=== PATIENT | female | born 1945 | race Caucasian/White ===

== ENCOUNTER 2025-04-30 10:09 | Observation (INO) | payer MEDICARE, SELFPAY ==
[2025-04-30 10:11] VITALS: BP 232/113; PULSE 93; RESP 22; TEMP 36.8; O2SAT 97
--- NOTE | 2025-04-30 10:21 | DI.RAD.S_ITS ---
PROCEDURE: XR CHEST 1V INDICATIONS: Possible stroke TECHNIQUE: One view of the chest was acquired. COMPARISON: None. FINDINGS: Surgical changes and devices: None. Lungs and pleura: Lungs are clear. No pleural effusions or pneumothorax. Mediastinum: Mediastinal contours appear normal. Heart size is normal. Bones and chest wall: No suspicious bony lesions. Overlying soft tissues appear unremarkable. IMPRESSION: No acute cardiopulmonary abnormality is seen. Dictated by: Raymundo Bearden M.D. on 04/30/2025 at 10:48 Approved by: Raymundo Bearden M.D. on 04/30/2025 at 10:48
--- NOTE | 2025-04-30 10:21 | DI.CT.S_ITS ---
PROCEDURE: CT STROKE INDICATIONS: Positive BE-FAST, Stroke symptoms TECHNIQUE: Noncontrast 4.5 mm thick angled axial sections acquired from the foramen magnum to the vertex, with coronal reformats. For radiation dose reduction, the following was used: automated exposure control, adjustment of mA and/or kV according to patient size. COMPARISON: None. FINDINGS: Image quality: Diagnostic. CSF spaces: Basal cisterns are patent. No extra-axial fluid collections. The ventricles are symmetric in size and shape. Brain: No intracranial bleeds or mass effect. There is cerebral volume loss, with resultant ventricular and sulcal prominence. There are periventricular and deep white matter chronic small vessel ischemic changes. There is intracranial internal carotid artery atherosclerosis. Skull and face: Calvarium and visualized facial bones appear intact, without suspicious lesions. Sinuses: Visualized sinuses and mastoids are clear. IMPRESSION: No acute intracranial pathology. Findings discussed with Dr. De La Cruz at 10:35 a.m. On 04/30/2025. This study fulfills neurological imaging criteria for inclusion or exclusion of acute stroke therapies based on available published neurological guidelines. Dictated by: Raymundo Bearden M.D. on 04/30/2025 at 10:34 Approved by: Raymundo Bearden M.D. on 04/30/2025 at 10:36
--- NOTE | 2025-04-30 10:21 | DI.CT.S_ITS ---
PROCEDURE: CT ANGIO HEAD AND NECK INDICATIONS: r/o stroke TECHNIQUE: After the administration of intravenous contrast, 1 mm thick sections acquired from the aortic arch through the [place]. 3-dimensional aahsjul-ptftojyay-gqxkxdebjh (MIP) and/or volume rendering reformats were acquired of the central intracranial vasculature and neck separately. For radiation dose reduction, the following was used: automated exposure control, adjustment of mA and/or kV according to patient size. COMPARISON: None. FINDINGS: Image quality: Diagnostic. Cerebral CT Angiogram: Internal carotid arteries: No acute findings. Intracranial ICA are patent with no significant stenosis. No occlusion. No aneurysm. Anterior cerebral arteries: Unremarkable. No significant stenosis. No occlusion. No aneurysm. Middle cerebral arteries: Unremarkable. No significant stenosis. No occlusion. No aneurysm. Posterior cerebral arteries: Unremarkable. No significant stenosis. No occlusion. No aneurysm. Basilar artery: Unremarkable. No significant stenosis. No occlusion. No aneurysm. Vertebral arteries: Unremarkable as visualized. Dural venous sinuses: Unremarkable given phase of enhancement. Other: Arterial phase appearance of the brain parenchyma is unremarkable. Neck CT Angiogram: Internal carotid arteries: 20% stenosis of the proximal left internal carotid artery. 79% stenosis of the proximal right internal carotid artery. Common carotid arteries: Unremarkable. No significant stenosis. No dissection or occlusion. External carotid arteries: Unremarkable. No occlusion. Vertebral arteries: Unremarkable. No significant stenosis. No dissection or occlusion. Aortic Arch and Mediastinum: Partially visualized aortic arch unremarkable without evidence of aneurysm. Origins of the great vessels unremarkable. Other: 2 cm left thyroid nodule. IMPRESSION: No significant intracranial arterial abnormality is seen. 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 2 cm left thyroid nodule. Recommend dedicated outpatient thyroid ultrasound if not performed in the past. Any quantitative measurements of stenosis were performed using NASCET criteria. Dictated by: Raymundo Bearden M.D. on 04/30/2025 at 10:49 Approved by: Raymundo Bearden M.D. on 04/30/2025 at 10:54
[2025-04-30 10:31] LABS: Add Manual Diff / Slide Review NO; Hematocrit 40.2 % (36-46); Hemoglobin 13.5 g/dL (12.0-16.0); Lymphocytes Absolute Auto 2300 /uL (1100-4500); Mean Corpuscular HGB Conc 33.6 % (30-36); Mean Corpuscular Hemoglobin 30.7 PG (26-34); Mean Corpuscular Volume 91.4 fL (80-100); Platelet Count 345 X10^3/uL (150-400)
[2025-04-30 10:39] LABS: INR 1.0 (0.9-1.3); Prothrombin Time 11.3 SECONDS (9.4-12.5)
[2025-04-30 10:42] LABS: PTT Partial Thromboplastin Tim 33 SECONDS (25.1-36.5)
[2025-04-30 10:44] LABS: Alanine Aminotransferase 14 IU/L (<35); Albumin 4.2 g/dL (3.5-5.0); Albumin Globulin Ratio 1.2 (1.0-2.8); Alkaline Phosphatase 88 U/L (38-126); Blood Urea Nitrogen 17 mg/dL (7-17); Calcium 8.9 mg/dL (8.4-10.2); Carbon Dioxide 24 mmol/L (22-32); Chloride 105 mmol/L (98-107); Creatine Kinase 63 U/L (30-135); Estimated Glomerular Filt Rate > 60 mL/min (>60); Globulin 3.6 g/dL (1.7-4.1); Glucose 121 mg/dL (70-99); HEMOLYSIS < 15 (0-50); Potassium 3.4 mmol/L (3.4-5.1); Sodium 139 mmol/L (137-145); Total Protein 7.8 g/dL (6.3-8.2)
--- NOTE | 2025-04-30 10:54 | EKG_ITS ---
[facility] [address] [place] [address] Test Date: 2025-04-30 Pat Name: Andreina Abebe Department: [facility] Room: Gender: Female [employer]ating Supervisor: MEGAN : 1945 Requested By: Order Number: [id number] Reading MD: Garrett Burns Measurements Intervals [place] Rate: 92 P: 63 AR: 170 QRS: -20 QRSD: 92 T: 63 QT: 390 QTc: 482 Interpretive Statements Normal sinus rhythm Possible Left atrial enlargement Minimal voltage criteria for LVH, may be normal variant ( [place] product ) Junctional ST depression, probably normal Electronically Signed On 05-01-2025 10:21:57 PDT by Garrett Burns
[2025-04-30 10:55] LABS: Troponin I < 0.012 ng/mL (0.01-0.034)
[2025-04-30 11:10] LABS: UR Morphine/Opiate cutoff 300 Negative (Negative); Ur Specific Gravity Normal (Normal); Urine MDMA Negative (Negative); Urine Methamphetamines Negative (Negative); Urine Tetrahydrocannabinol Negative (Negative); Urine Tricyclic Antidepressant Negative (Negative)
--- NOTE | 2025-04-30 11:18 | ED.NEUROSD ---
HPI - Neuro Symptoms/Deficit General Chief Complaint: Neuro Symptoms/Deficit Stated Complaint: per patient , Having a stroke Time Seen by Provider: 04/30/25 10:20 Source: patient and family Mode of arrival: Family Vehicle History of Present Illness HPI Narrative: 79-year-old female history of hypertension dyslipidemia not currently on any medicines for many years brought in this morning at a.m. noticed numbness in the right side of her face and numbness in the arms and legs but denies headache, blurred vision, difficulty speaking, swallowing, hearing loss, chest pain, shortness of breath, nausea, vomiting, gait instability. Did not take anything prior to arrival. Other than what is stated 14 point review of system is negative. On Anticoagulants: No Related Data Allergies Allergy/AdvReac Type Severity Reaction Status Date / Time Penicillins Allergy Rash Verified 04/30/25 10:26 Review of Systems Review of Systems ROS Unobtainable: All systems reviewed & are unremarkable except as noted in HPI and below Hematologic/Lymphatic On Anticoagulants: No Patient History Smoking Status: Current some day smoker tobacco type: cigarettes Exam Narrative Exam Narrative: GENERAL: [79] year old patient appears stated age. Well-developed patient, in mild distress. HEAD: Atraumatic. Normocephalic. EYES: Pupils equal round and reactive. Extraocular motions intact. No scleral icterus. No injection or drainage. ENT: Nose without bleeding, purulent drainage. Throat without erythema, tonsillar hypertrophy or exudate. Airway patent. NECK: Trachea midline. Non tender CARDIOVASCULAR: Regular rate and rhythm without murmurs, gallops, or rubs. RESPIRATORY: Clear to auscultation. Breath sounds equal bilaterally. No wheezes, rales, or rhonchi. GASTROINTESTINAL: Abdomen soft, non-tender, nondistended. EXTREMITIES: No edema or joint tenderness. BACK: Nontender without deformity or crepitance. No flank tenderness. NEURO: AOx3. GCS 15 nonfocal neuro exam alert and oriented x4 negative pronator drift up 5/5 upper and lower extremity fcgqkl-mt-sztf opposite ugvf-pe-grtf test intact SKIN: No rash or erythema of visible areas Initial Vital Signs Initial Vital Signs: Vital Signs Temperature 98.2 F 04/30/25 10:11 Pulse Rate 93 H 04/30/25 10:11 Respiratory Rate 22 04/30/25 10:11 Blood Pressure 232/113 H 04/30/25 10:11 Pulse Oximetry 97 04/30/25 10:11 Oxygen Delivery Method Room Air 04/30/25 10:11 Scores NIH Stroke Scale Level of Conciousness: Alert, keenly responsive Ask month/age: Answers both questions correctly. Open/close eyes, close hand: Performs both tasks correctly Best gaze horizontal: Normal Visual pena: No visual loss Facial palsy: Normal symetrical movement Left arm drift: No drift for full 10 sec Right arm drift: No drift for full 10 sec Left leg drift: No drift for full 5 sec Right leg drift: No drift for full 5 sec Limb ataxia: Absent Sensory on face/arms/legs: Mild to moderate sensory loss, can tell touch Best language: No aphasia, normal Dysarthria: Normal Extinction or inattention: No abnormality Total NIH Stroke scale score: 1 Course Orders Ordered: ED Orders 04/30/25 10:[address] angio head and neck Stat XR chest 1V Stat EKG-12 Lead Stat 04/30/25 10:22 Complete Blood Count AUTO DIFF Stat Comprehensive Metabolic Panel Stat PTT Partial Thromboplastin Sree Stat Prothrombin Time INR Stat Troponin & CK Cardiac Panel Stat 04/30/25 10:49 Urine Drug Screen, Rapid Stat 04/30/25 11:10 Urine Microscopic Stat Ondansetron HCl (Ondansetron 4 Mg/2 Ml Inj) 4 mg IV NOW PRN PRN Reason: Nausea And Vomiting Ondansetron HCl (Ondansetron 4 Mg Odt) 4 mg PO NOW PRN PRN Reason: Nausea And Vomiting Vital Signs Vital signs: Vital Signs - 8 hr 04/30/25 10:11 Temperature 98.2 F Pulse Rate 93 H Respiratory Rate 22 Blood Pressure 232/113 H Pulse Oximetry 97 Oxygen Delivery Method Room Air MDM - Neuro Symptoms/Deficit Lab Data 04/30/25 10:22 04/30/25 10:22 Labs: Lab Results 04/30/25 04/30/25 04/30/25 Range/Units 10:16 10:22 10:49 WBC 10.5 (4.5-11.0) X10^3/uL RBC 4.40 (4.0-5.2) X10^6/uL Hgb 13.5 (12.0-16.0) g/dL Hct 40.2 (36-46) % MCV 91.4 (80-100) fL MCH 30.7 (26-34) PG MCHC 33.6 (30-36) % RDW 13.4 (11.6-14.8) % Plt Count 345 (150-400) X10^3/uL Neut % (Auto) 70.2 (50-75) % Lymph % (Auto) 21.4 L (25-40) % [place] % (Auto) 6.9 (3-14) % Eos % (Auto) 0.8 L (2-4) % Baso % (Auto) 0.7 (0-2) % Neut # (Auto) 7400 H (6443-4891) /uL Lymph # (Auto) 2300 (5933-4253) /uL [place] # (Auto) 700 (0-900) /uL Eos # (Auto) 100 (0-450) /uL Baso # (Auto) 100 (0-100) /uL PT 11.3 (9.4-12.5) SECONDS INR 1.0 (0.9-1.3) APTT 33 (25.1-36.5) SECONDS Sodium 139 (137-145) mmol/L Potassium 3.4 (3.4-5.1) mmol/L Chloride 105 (98-107) mmol/L Carbon Dioxide 24 (22-32) mmol/L BUN 17 (7-17) mg/dL Creatinine 0.83 (0.52-1.04) mg/dL Estimated GFR > 60 (>60) mL/min BUN/Creatinine Ratio 20.5 (6-22) Glucose 121 H (70-99) mg/dL POC Whole Bld Glucose 114 H (70-99) mg/dL Calcium 8.9 (8.4-10.2) mg/dL Total Bilirubin 0.4 (0.2-1.3) mg/dL AST 22 (14-36) IU/L ALT 14 (<35) IU/L Alkaline Phosphatase 88 (38-126) U/L Total Creatine Kinase 63 (30-135) U/L Troponin I < 0.012 (0.01-0.034) ng/mL Total Protein 7.8 (6.3-8.2) g/dL Albumin 4.2 (3.5-5.0) g/dL Globulin 3.6 (1.7-4.1) g/dL Albumin/Globulin Ratio 1.2 (1.0-2.8) U Opiates 300ng/mL cut Negative (Negative) Ur Oxycodone Screen Negative (Negative) Urine Methadone Screen Negative (Negative) Ur Barbiturates Screen Negative (Negative) U Tricyclic Antidepress Negative (Negative) Ur Phencyclidine Scrn Negative (Negative) Ur Amphetamines Screen Negative (Negative) U Methamphetamines Scrn Negative (Negative) Ur MDMA Scrn (Ecstasy) Negative (Negative) U Benzodiazepines Scrn Negative (Negative) Urine Cocaine Screen Negative (Negative) U Marijuana (THC) Screen Negative (Negative) Urine pH Normal (Normal) Urine Specific [place] Normal (Normal) Ur Creatinine Normal (Normal) Urine Dip Bedside Urine Glucose Negative Bedside Urine Bilirubin - Negative Bedside Urine Ketone - Negative Urine Specific [place] 1.005 Bedside Urine Occult Blood +/- Bedside Urine pH 6.5 Bedside Urine Protein ++ 100 Bedside Urine Urobilinogen - Negative Bedside Urine Nitrite - Negative Bedside Urine Leukocytes - Negative Esterase Imaging Data Chest x-ray: Radiologist's Impression: [address] [address] XRay Report Signed Patient: Andreina Abebe MR#: [id number] : 1945 Acct:[id number] Age/Sex: 79 / F Date of Service: 04/30/25 Loc: ED Accession Number: [id number] Procedure: XR chest 1V Ordering Provider: Adan De La Cruz D.O. PROCEDURE: XR CHEST 1V INDICATIONS: Possible stroke TECHNIQUE: One view of the chest was acquired. COMPARISON: None. FINDINGS: Surgical changes and devices: None. Lungs and pleura: Lungs are clear. No pleural effusions or pneumothorax. Mediastinum: Mediastinal contours appear normal. Heart size is normal. Bones and chest wall: No suspicious bony lesions. Overlying soft tissues appear unremarkable. IMPRESSION: No acute cardiopulmonary abnormality is seen. CT scan - head: Radiologist's Impression: [address] [address] [address] Scan Report Signed Patient: Andreina Abebe MR#: [id number] : 1945 Acct:[id number] Age/Sex: 79 / F Date of Service: 04/30/25 Loc: ED Accession Number: [id number] Procedure: CT Stroke Ordering Provider: Adan De La Cruz D.O. PROCEDURE: CT STROKE INDICATIONS: Positive BE-FAST, Stroke symptoms TECHNIQUE: Noncontrast 4.5 mm thick angled axial sections acquired from the foramen magnum to the vertex, with coronal reformats. For radiation dose reduction, the following was used: automated exposure control, adjustment of mA and/or kV according to patient size. COMPARISON: None. FINDINGS: Image quality: Diagnostic. CSF spaces: Basal cisterns are patent. No extra-axial fluid collections. The ventricles are symmetric in size and shape. Brain: No intracranial bleeds or mass effect. There is cerebral volume loss, with resultant ventricular and sulcal prominence. There are periventricular and deep white matter chronic small vessel ischemic changes. There is intracranial internal carotid artery atherosclerosis. Skull and face: Calvarium and visualized facial bones appear intact, without suspicious lesions. Sinuses: Visualized sinuses and mastoids are clear. IMPRESSION: No acute intracranial pathology. Findings discussed with Dr. De La Cruz at 10:35 a.m. On 04/30/2025. This study fulfills neurological imaging criteria for inclusion or exclusion of acute stroke therapies based on available published neurological guidelines. CTA - brain/neck: Radiologist's Impression: [place] [address] CT Scan Report Signed Patient: Andreina Abebe MR#: [id number] : 1945 Acct:[id number] Age/Sex: 79 / F Date of Service: 04/30/25 Loc: ED Accession Number: [id number] Procedure: CT angio head and neck Ordering Provider: Adan De La Cruz D.O. PROCEDURE: CT ANGIO HEAD AND NECK INDICATIONS: r/o stroke TECHNIQUE: After the administration of intravenous contrast, 1 mm thick sections acquired from the aortic arch through the [place]. 3-dimensional rbskcrv-mrbqpwpnu-leifesqlzg (MIP) and/or volume rendering reformats were acquired of the central intracranial vasculature and neck separately. For radiation dose reduction, the following was used: automated exposure control, adjustment of mA and/or kV according to patient size. COMPARISON: None. FINDINGS: Image quality: Diagnostic. Cerebral CT Angiogram: Internal carotid arteries: No acute findings. Intracranial ICA are patent with no significant stenosis. No occlusion. No aneurysm. Anterior cerebral arteries: Unremarkable. No significant stenosis. No occlusion. No aneurysm. Middle cerebral arteries: Unremarkable. No significant stenosis. No occlusion. No aneurysm. Posterior cerebral arteries: Unremarkable. No significant stenosis. No occlusion. No aneurysm. Basilar artery: Unremarkable. No significant stenosis. No occlusion. No aneurysm. Vertebral arteries: Unremarkable as visualized. Dural venous sinuses: Unremarkable given phase of enhancement. Other: Arterial phase appearance of the brain parenchyma is unremarkable. Neck CT Angiogram: Internal carotid arteries: 20% stenosis of the proximal left internal carotid artery. 79% stenosis of the proximal right internal carotid artery. Common carotid arteries: Unremarkable. No significant stenosis. No dissection or occlusion. External carotid arteries: Unremarkable. No occlusion. Vertebral arteries: Unremarkable. No significant stenosis. No dissection or occlusion. Aortic Arch and Mediastinum: Partially visualized aortic arch unremarkable without evidence of aneurysm. Origins of the great vessels unremarkable. Other: 2 cm left thyroid nodule. IMPRESSION: No significant intracranial arterial abnormality is seen. 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 2 cm left thyroid nodule. Recommend dedicated outpatient thyroid ultrasound if not performed in the past. Any quantitative measurements of stenosis were performed using NASCET criteria. ECG Data Interpretation: NSR HR 92 DE 170 QRS [address]-t wave change No previous EKG to compare MDM Narrative Medical decision making narrative: All lab work, vital signs, nurse triage note, medication list, previous ER visits, and all imaging studies reviewed. CTA head and neck show high-grade stenosis of proximal right internal carotid artery at 79% 2 cm left thyroid nodule. NIH stroke scale 1. Patient given aspirin 324mg and Plavix 300mg PO and continue dual platelet therapy for 21 days and then just asa 81mg Po x 1. Differential diagnosis includes CVA TIA aneurysm hemorrhage stenosis. Discharge Plan Departure Patient Disposition: Admitted As Inpatient Clinical Impression: Cerebrovascular accident Admit Date/Time: 04/30/25 11:56 Admit Provider: Garrett Burns
[2025-04-30 13:16] LABS: Culture Indicated Urine Specimen Cultured
--- NOTE | 2025-04-30 13:19 | DI.MRI.S_ITS ---
PROCEDURE: MR HEAD/BRAIN WO CON INDICATIONS: TIA TECHNIQUE: Non-contrast axial T1 spin echo, axial T2 fast spin echo, sagittal and axial FLAIR, coronal T2 fast spin echo, axial gradient echo, axial diffusion and ADC through the brain. COMPARISON: None. FINDINGS: Image quality: Excellent. CSF spaces: Ventricles appear symmetric in size and shape. Basal cisterns are patent. No extra-axial fluid collections. Brain: No intracranial bleeds or mass effects. There is cerebral volume loss for age. There are periventricular and deep white matter chronic small vessel ischemic changes. Brainstem appears normal. No chronic ischemic insults. Normal intravascular flow voids are present. There is a focus of restricted diffusion in the left thalamus, with associated T2 intermediate signal. Skull and face: Calvarial bone marrow is normal in signal. Orbits are normal. Sinuses: Sinuses and mastoids are clear. IMPRESSION: Late acute infarct of the left thalamus. Dictated by: Raymundo Bearden M.D. on 04/30/2025 at 15:08 Approved by: Raymundo Bearden M.D. on 04/30/2025 at 15:10
--- NOTE | 2025-04-30 13:20 | DI.ECHO.S_ITS ---
[facility]+ [facility] : : [address] : [place] : : [address] : : Phone: [phone] Echocardiogram Report + + :Name: CAROLINA LOVE Study Date: 04/30/2025 Height: 65 in : :[facility] ReadingLocation: Weight: 135 lb : : Gender: Female BSA: 1.7 m2 : :: 1945 Age: 79 yrs BP: 254/77 mmHg: :Reason For Study: TIA : :Ordering Physician: HEIDE, : :SAGAR Hallman Performed By: Freddy Collins : :Referring: SAGAR JAEGER : + + Interpretation Summary The ejection fraction is estimated to be 55-60%. Diastolic function is indeterminate. Left ventricular wall thickness is mild-moderately increased. The right ventricle is normal in size and function. There is moderate aortic stenosis. There is moderate aortic regurgitation. Pulmonary artery pressures cannot be estimated because of the lack of a measurable TR jet velocity but the IVC suggests a CVP of around 3 mmHg. Procedure: A two-dimensional transthoracic echocardiogram with color flow and Doppler was performed. The study quality was technically good. There is no prior echocardiogram noted for this patient. The patient was in normal sinus rhythm during the exam. Left Ventricle: The left ventricle is normal in size. Left ventricular wall thickness is mild-moderately increased. There is no ventricular septal defect visualized. The ejection fraction is estimated to be 55-60%. There are no focal wall motion abnormalities. Diastolic function is indeterminate. Right Ventricle: The right ventricle is normal in size and function. Atria: The left atrial size is normal. Right atrial size is normal. There is no Doppler evidence for an atrial septal defect. Mitral Valve: There is moderate mitral annular calcification. The mitral valve leaflets are mildly calcified. The mitral valve leaflets appear mildly thickened. There is trace mitral regurgitation. Aortic Valve: The aortic valve is moderately calcified. The peak aortic velocity is 3.0 m/sec. The aortic valve mean gradient is 20 mmHg. The dimensionless index is 0.3. There is moderate aortic stenosis. There is moderate aortic regurgitation. Tricuspid Valve: The tricuspid valve leaflets are thin and pliable. There is a trace or physiologic amount of tricuspid regurgitation. Pulmonary artery pressures cannot be estimated because of the lack of a measurable TR jet velocity but the IVC suggests a CVP of around 3 mmHg. Pulmonic Valve: The pulmonic valve is not well visualized. There is no pulmonic valvular regurgitation. Great Vessels: The aortic root is normal size. The dimensions of the ascending aorta are normal. The pulmonary artery is normal size. The IVC is of normal diameter and collapses greater than 50% with a sniff. This suggests a low right atrial pressure of 3 mm Hg. Pericardium/ Pleura There is no pericardial effusion. There is no pleural effusion. MMode/2D Measurements & Calculations LVIDd: 3.4 cm LVOT diam: 2.0 cm LVIDs: 2.4 cm Ao root diam: 2.9 cm FS: 27.6 % EPSS: 0.66 cm IVSd: 1.4 cm LVPWd: 1.4 cm LV pacheco. diameter/BSA (cm/m^2): 2.0 LV sys. diameter/BSA (cm/m^2): 1.5 LA A2 area: 16.5 cm2 RA long axis: 4.8 cm LA A4 area: 18.5 cm2 RA area: 10.1 cm2 LA length (vol): 5.7 cm RA vol: 18.2 ml LA vol: 45.9 ml RA : 10.8 ml/m2 LA vol index: 27.4 ml/m2 IVC diam: 1.1 cm RVD1 (basal): 2.3 cm RVD2 (mid): 1.7 cm TAPSE: 2.8 cm Doppler Measurements & Calculations Ao V2 max: 299.1 cm/sec LVOT Max Tho: 96.3 cm/sec Ao V2 mean: 196.8 cm/sec LV V1 max P.7 mmHg Ao max P.8 mmHg LV V1 VTI: 21.6 cm Ao mean P.7 mmHg PATT(I,D): 1.2 cm2 Ao V2 VTI: 57.7 cm PATT(V,D): 1.0 cm2 sev ratio: 0.37 PATT indexed to BSA (cm^2/m^2): 0.70 AI P1/2t: 437.3 msec AI dec slope: 382.0 cm/sec2 MV E max tho: 49.1 cm/sec TR max tho: 222.5 cm/sec MV A max tho: 130.0 cm/sec TR max P.8 mmHg MV E/A: 0.38 PA V2 max: 153.5 cm/sec Med Peak E' Tho: 2.7 cm/sec PA V2 mean: 112.2 cm/sec E/E' med: 18.4 PA mean P.5 mmHg Lat Peak E' Tho: 3.4 cm/sec PA pr(Accel): 31.0 mmHg E/E' lat: 14.4 E/e' average: 16.4 MV dec time: 0.10 sec [facility] 67.3 ml Reading Physician:05:29 PM
--- NOTE | 2025-04-30 13:20 | PM.HP.1 ---
History of Present Illness History of Present Illness Date Patient Seen: 04/30/25 Time Patient Seen: 15:25 Chief complaint: per patient , Having a stroke Narrative: The patient was a very pleasant 79-year-old female with history of smoking as well as untreated hypertension for the last 1-1/2 years. She awoke this morning with numbness of the right face and right side of her body. She presented to the ED where a CTA revealed 79% left internal carotid stenosis and no other findings. Her CT brain was unremarkable. She was discussed with tele neurology who recommended antiplatelet therapy with a dual load and high dose aspirin for 21 days as well as Plavix. Patient was given initial antiplatelet therapy in the emergency department. She had no weakness, facial droop, or other symptoms. Ultimately, she was admitted for ongoing evaluation. An MRI was ordered. She denies history of TIA, or stroke. She had a mild headache and has been under a lot of stress with her recently. FORMERLY [facility], [facility] Social History Smoking Status: Current some day smoker Meds Home Medications and Allergies Allergies Allergy/AdvReac Type Severity Reaction Status Date / Time Penicillins Allergy Rash Verified 04/30/25 10:26 Review of Systems Review of Systems Narrative: All else reviewed and otherwise unremarkable except as noted in the history and physical. Exam Vital Signs (past 8 hours): - 04/30/25 10:11 Temperature 98.2 F Pulse Rate 93 H Respiratory Rate 22 Blood Pressure 232/113 H Pulse Oximetry 97 Oxygen Delivery Method Room Air Oxygen Delivery Method Room Air Narrative Exam Narrative: NAD, alert and oriented, fluent speech, calm. Normocephalic skull, EOMI, anicteric sclera, symmetric pupils. Oropharynx unremarkable, no droop. Neck supple, midline trachea, no adenopathy. Lungs clear, normal rate and effort. Heart regular, no murmur gallop or rub. Abdomen is soft, non distended and non tender. Extremities are free of edema. Skin is free of rash or lesions. Joints are not swollen or deformed. Judgment appears to be normal. Neuro: Cranial nerves normal, no facial droop normal speech. Motor strength is 5/5 all extremities. She was decreased sensation to touch in the right face, arm, and leg. Objective ECG Impression: Normal sinus rhythm Possible Left atrial enlargement Minimal voltage criteria for LVH, may be normal variant ( Jonel product ) Junctional ST depression, probably normal Imaging Multiple studies:: Radiologist's impression: CT brain: No acute intracranial pathology. CTA head and neck: No significant intracranial arterial abnormality is seen. 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 2 cm left thyroid nodule. Recommend dedicated outpatient thyroid ultrasound if not performed in the past. Any quantitative measurements of stenosis were performed using NASCET criteria. 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 Labs 04/30/25 10:22 04/30/25 10:22 Labs: Laboratory Results - last 24 hr 04/30/25 04/30/25 04/30/25 10:16 10:22 10:49 WBC 10.5 RBC 4.40 Hgb 13.5 Hct 40.2 MCV 91.4 MCH 30.7 MCHC 33.6 RDW 13.4 Plt Count 345 Neut % (Auto) 70.2 Lymph % (Auto) 21.4 L [place] % (Auto) 6.9 Eos % (Auto) 0.8 L Baso % (Auto) 0.7 Neut # (Auto) 7400 H Lymph # (Auto) 2300 [place] # (Auto) 700 Eos # (Auto) 100 Baso # (Auto) 100 PT 11.3 INR 1.0 APTT 33 Sodium 139 Potassium 3.4 Chloride 105 Carbon Dioxide 24 BUN 17 Creatinine 0.83 Estimated GFR > 60 BUN/Creatinine Ratio 20.5 Glucose 121 H POC Whole Bld Glucose 114 H Calcium 8.9 Total Bilirubin 0.4 AST 22 ALT 14 Alkaline Phosphatase 88 Total Creatine Kinase 63 Troponin I < 0.012 Total Protein 7.8 Albumin 4.2 Globulin 3.6 Albumin/Globulin Ratio 1.2 Urine RBC 1-5/hpf Urine WBC 5-10/hpf H Ur Squamous Epith Cells 0-1 /hpf Urine Bacteria Many (>30) H Ur Culture Indicated? Specimen cultured Vol Urine Centrifuged 10ml (spun) U Opiates 300ng/mL cut Negative Ur Oxycodone Screen Negative Urine Methadone Screen Negative Ur Barbiturates Screen Negative U Tricyclic Antidepress Negative Ur Phencyclidine Scrn Negative Ur Amphetamines Screen Negative U Methamphetamines Scrn Negative Ur MDMA Scrn (Ecstasy) Negative U Benzodiazepines Scrn Negative Urine Cocaine Screen Negative U Marijuana (THC) Screen Negative Urine pH Normal Urine Specific [place] Normal Ur Creatinine Normal Assessment & Plan Assessment & Plan narrative: 1. Thalamic stroke, active. 2. Hypertensive urgency, active. 3. Anxiety, active. 4. Tobacco use, active. PLAN: -dual antiplatelet therapy for 21 days, we will be using 325 aspirin a day as recommended by tele neuro for 21 days and Plavix 75 mg a day. We will also start high dose atorvastatin. -PT and OT evaluations. -serial neurologic examination. -permissive hypertension for 24-48 hours and then slow correction of chronic uncontrolled hypertension. -she declines a nicotine patch. Full code Anticipate 2 midnights in the hospital, supports inpatient status. Time-Based Coding :: 35 min spent with patient and on the chart (including review of chart, obtaining history, exam, reviewing outside data, placing orders, documenting exam and treatment plan, and counseling patient) on 04/30. Quality MIPS - Admit I confirm the patient?s Advance Care Plan is present, Code status is documented, Surrogate decision maker is in patient?s record [If Yes, STOP here]: Yes MIPS - Meds 'Current medications' to include all prescriptions, [id number] products, herbals, cannabis/cannabidiol products, and vitamin/mineral/dietary (nutritional) supplements. I have utilized all available resources to obtain, update, or review the patient?s current medications. [If Yes, STOP here]: Yes
[2025-04-30 14:31] LABS: Cholesterol 222 mg/dL (140-199); Triglycerides 143 mg/dL (35-150)
[2025-04-30] MEDS: CLOPIDOGREL 75 MG TABLET 300 MG PO (15:23)
[2025-04-30] MEDS: HEPARIN 5,000 UNIT/ML VIAL 5000 UNIT SUBCUT ×2 (15:24→20:33)
[2025-04-30] MEDS: ASPIRIN EC 81 MG TABLET PO (15:24)
--- NOTE | 2025-04-30 15:30 | PT.IIE ---
Physical Therapy Inpatient Evaluation/Re-Eval M1 PT/OT-IP Prior Functional Status Start: 04/30/25 15:51 Freq: NEEDED Status: Active Protocol: Document 04/30/25 15:30 AB (Rec: 04/30/25 16:04 AB [id number]) Medical Review Prior Functional Status Medical History Yes Reviewed Communication able to make needs known Mobility and Gait pt stated that she is independent with all mobilities and ambulation without AD Social History Household Members children Living Arrangements House Number of Floors ( One Floor Floors) Number of Stairs To ramp to enter with B rails Enter/Railing? Home Environment Standard Height Toilet,Tub/Shower,Ramp Home Equipment Grab Bars In Shower Additional Social pt lives her 2 sons who can assist her if needed History Comment pt stated that she takes baths and not showers M2 PT-IP Current Condition Start: 04/30/25 15:51 Freq: NEEDED Status: Active Protocol: Document 04/30/25 15:30 AB (Rec: 04/30/25 16:04 AB [id number]) Physical Therapy Current Condition Current Condition Evaluation Date 04/30/25 Treatment Diagnosis CVA; difficulty in walking Onset Date 04/30/25 M3 PT-IP Subjective Start: 04/30/25 15:51 Freq: NEEDED Status: Active Protocol: Document 04/30/25 15:30 AB (Rec: 04/30/25 16:04 AB [id number]) Subjective Physical Therapy Visit Type Type Initial Evaluation Visit Start Time 15:30 Visit Stop Time 15:50 Number of ASSEMBLER SMALL PRODUCTS Visits 0 Physical Therapy Visit Comments Patient Comments seems anxious but agreed to do PT; does not want BP to be taken due to causing arm pain M4 PT-IP Mobility and Gait Start: 04/30/25 15:51 Freq: NEEDED Status: Active Protocol: Document 04/30/25 15:30 AB (Rec: 04/30/25 16:04 AB [id number]) PT-Bed Mobility Assessment Supine to Sit Supine to Sit Independent Sit to Supine Sit to Supine Independent PT-Transfer Assessment Sit to and From Stand Sit to and from Standby Assistance,1 Person Assistance,Use of Upper Stand Extremities Equipment Transfer Assistive None Device Orthotic/Prosthetic No Devices or Brace: Comments Mobility Comments pt just got out from the toilet and ambulating back to her be without AD SBA. presents with unsteady gait. pt is also impulsive. pt lay back in bed I. obtained PLOF and home set up. c/o R sided numbness. checked sensation and decrease on RLE. pt refused for BP to be taken due to arm pain with BP cuff. supine to sit I. ambulated in room without AD SBA to occasional CGA. presents with unsteady gait with increase R sided leaning and weaving. pt sat back on EOB. informed pt regarding standing balance and ambulation and stated that she has balance problems from before but slightly worse today. got up again and ambulated SBA 20 ft. stated that due to RLE, balance is worse but also stated that she feels the same. pt is very anxious and is impulsive. pt laid back in bed. call light and table placed within reach. Gait Assessment Gait Gait Assistance Standby Assistance,Contact Guard Assist Required: Distance (Feet) 40 Able to Maintain No Weight Bearing Status During Gait Assistive Devices Assistive Device None Orthotic/Prosthetic No Devices or Brace: Gait Deviations General Gait Pattern Ataxic,Decreased Stride Length,Decreased Feet Clearance Factors Limiting Gait Function Factors Limiting Decreased Activity Tolerance,Decreased Sensation, Gait Function Decreased Strength,Limited Range of Motion,Poor Balance ,Poor Safety Awareness PT-Balance Assessment Sitting Balance and Reactions Static Sitting Normal Balance Ability Dynamic Sitting Good Balance Ability Standing Balance and Reactions Static Standing Good Balance Ability Dynamic Standing Fair Balance Ability Device Used without AD M5 PT-IP Objective Assessments Start: 04/30/25 15:51 Freq: NEEDED Status: Active Protocol: Document 04/30/25 15:30 AB (Rec: 04/30/25 16:04 AB [id number]) Orientation Orientation/Cognition Level of Alertness Alert Orientation Name,Place,Situation Language Function No Deficits Noted Ability Safety Awareness Decreased Safety Awareness Memory Description No Deficits Noted Gross Range of Motion Lower Extremity ROM Assessment Within Functional Limits Strength Lower Extremity Strength Assessment Within Functional Limits Sensation Assessment Sensation Gross Sensation Right LE Impaired Light Touch Impaired Proprioception ( Impaired Position) Sensation Numbness Description Muscle Tone Muscle Tone WNL Yes M6 PT-IP Treatment Start: 04/30/25 15:51 Freq: NEEDED Status: Active Protocol: Document 04/30/25 15:30 AB (Rec: 04/30/25 16:04 AB [id number]) Physical Therapy Treatment Education Education Provided Safety M7 PT-IP Assessment and Plan Start: 08/08/25 15:51 Freq: NEEDED Status: Active Protocol: Document 04/30/25 15:30 AB (Rec: 04/30/25 16:04 AB [id number]) PT Summary Assessment and Plan Potential Rehabilitation Fair Potential Status of Condition Evolving at Evaluation Summary Impairments Balance,Coordination,Sensation,Transfers,Gait,Activity Tolerance Assessment Summary pt is a 79 y/o F who is admitted for CVA. pt is independent with bed mobility, SBA to CGA with ambulation without AD. pt presents with unsteady gait. pt lives with her sons and can assist her if needed. pt will benefit from outpt PT. Goals Transfer Goal Independent Gait Goal Independent Gait Distance 200 Days to Meet Goals 5 Frequency of Treatment Frequency Of Once a Day Treatment Treatment Plan Physical Therapy Bed Mobility Training,Transfer Training,Gait Training, Treatment Plan Therapeutic Exercise,Balance Retraining,Discharge Planning,Hot or Cold Pack,Neuromuscular Re-ed, Coordination Retraining Recommendations To Nursing Amount of Assist 1 Person Assist Needed Discharge Recommendations PT Discharge Home with Assistance,Outpatient PT Recommendations Transportation Needs Private Vehicle at Discharge - PT assist 1
[2025-04-30 15:36] LABS: HDL Cholesterol 35 mg/dL (40-60)
[2025-04-30 16:15] VITALS: BMI 22.5
--- NOTE | 2025-04-30 16:24 | ST.IPIE ---
Addendum entered and electronically signed by Mimi Grijalva 04/30/25 16:27: No ST services warranted, ST completed order. Original Note: Visit Care Team Role Provider Type Adan De La Cruz DO Emergency Provider Physician Referring Provider Specialty: Emergency Medicine Address: [address] [place] [address], [id number] Phone: Fax: Email: [email or web address] Garrett Burns MD Admit Provider Physician Attending Provider Specialty: Internal Medicine Address: [address] [place] [address], [id number] Email: ST IP Initial Evaluation Report QUALITY CONTROL PROJECTIONIST Adult Cognitive Linguistic Eval Start: 04/30/25 16:11 Freq: Status: Active Protocol: Document 04/30/25 16:11 MM (Rec: 04/30/25 16:24 MM Desktop) Adult Cognitive Linguistic Evaluation Session Time Visit Start Time 15:45 Visit Stop Time 16:10 Total Visit Minutes 25 Referral Referring Provider Garrett Burns MD Reason for Referral stroke workup Setting Assessment Location Acute Care Visit Type Note Type Initial evaluation Patient Information Identification Type Name,Wristband Patient History Per H&P 04/30/2025: The patient was a very pleasant 79 -year-old female with history of smoking as well as untreated hypertension for the last 1-1/2 years. She awoke this morning with numbness of the right face and right side of her body. She presented to the ED where a CTA revealed 79% left internal carotid stenosis and no other findings. Her CT brain was unremarkable. She was discussed with tele neurology who recommended antiplatelet therapy with a dual load and high dose aspirin for 21 days as well as Plavix. Patient was given initial antiplatelet therapy in the emergency department. She had no weakness, facial droop, or other symptoms. Ultimately, she was admitted for ongoing evaluation. An MRI was ordered. She denies history of TIA, or stroke. She had a mild headache and has been under a lot of stress with her recently. Per MRI 04/30/2025: Late acute infarct of the left thalamus. Per CXR 04/30/2025: No acute cardiopulmonary abnormality is seen. WBC = 10.5, WNL at this time. Previous Therapy Previous Speech- No Language Therapy Subjective Patient Report Pt awake and alert upon ST arrival. Pt denied dysphagia , dysarthria, aphasia, or cognitive-linguistic deficits /p onset of stroke symptoms. Pt reported she is at her baseline for swallowing, speech, language, and cognition. Pt appeared anxious although pleasant and cooperative throughout ST evaluation. Pt endorsed right -sided body and facial numbness. Assessment Oral Motor Yes Examination Completed Results Pt mostly edentulous, bottom partial dentures in place, missing top complete dentures. Adequate oral health. Cranial nerves grossly intact bilaterally. Baseline cough noted prior to PO trials. Pt breathing comfortably on room air. Pt observed across trials of thin liquids (3 oz water via straw) and soft/bite sized (x3 tsp diced peaches) without overt signs/symptoms of oral or pharyngeal dysphagia. Informal Assessment Receptive Language Yes Normal Expressive Language Yes Normal Pragmatic Language Yes Normal Speech Normal Yes Cognition Normal Yes Formal Assessment Standardized Test/ [facility] Mental Status ([facility]) Screener Type Administration Complete Results The [facility] Mental Status (UMS) was administered to assess the pt's cognitive-linguistic skills; it is an 11-item cognitive-screening tool assessing orientation, memory, attention, mental flexibility, visuospatial skills, and executive functioning. The pt scored a 28/30, which indicates normal cognitive function. No current evidence of mild neurocognitive disorder or dementia. Findings/Results Language Function Within normal limits Cognitive Function Within normal limits Findings Based on pt report, informal measures, and formal assessment via SLUMS pt presents with swallowing, speech, language, and cognition WFL/baseline. No skilled ST services warranted at this time. ST signing off, please re-consult if there is any change in status . Prognosis Prognosis Good Plan of Care Speech-Language No Treatment Patient/Caregiver Described results of evaluation,Patient expressed Education understanding of evaluation
[2025-04-30 16:57] VITALS: BP 245/77; PULSE 82; RESP 20; TEMP 36.4; O2SAT 98
[2025-04-30] MEDS: AMLODIPINE 5 MG TABLET PO (17:07)
[2025-04-30] MEDS: ACETAMINOPHEN 325 MG TABLET 650 MG PO (17:07)
[2025-04-30 18:15] LABS: Hemoglobin A1C% w Est Avg Glu 5.6 % (4.0-6.0)
[2025-04-30 19:51] VITALS: BP 211/64; PULSE 77; RESP 18; TEMP 36; O2SAT 96
[2025-04-30] MEDS: ATORVASTATIN 20 MG TABLET 80 MG PO (20:32)
[2025-04-30] MEDS: SODIUM CHLORIDE 0.9% FLUSH 10 ML IV (20:34)
[2025-05-01] VITALS: BP 204/68; PULSE 63; RESP 16; TEMP 36.1; O2SAT 97
[2025-05-01 04:00] VITALS: BP 227/74; PULSE 65; RESP 17; TEMP 36.6; O2SAT 97
--- NOTE | 2025-05-01 05:58 | PC.NURSE ---
Pt bp continues to be elevated at 0400 it was 227/74, no headache and no neuro changes, tele SR/SB, HR goes to low 50's. Dr. Berkowitz aware. No new orders, he stated let's continue with permissive hypertension.
[2025-05-01 06:06] LABS: Thyroid Stimulating Hormone 4.04 uIU/mL (0.47-4.68)
[2025-05-01 08:00] VITALS: BP 182/53; PULSE 69; RESP 19; TEMP 36.6; O2SAT 96
[2025-05-01] MEDS: CLOPIDOGREL 75 MG TABLET PO (10:04)
[2025-05-01] MEDS: SODIUM CHLORIDE 0.9% FLUSH 10 ML IV (10:06)
--- NOTE | 2025-05-01 11:05 | PT.IPTN ---
Current Diagnoses Cerebral infarction, unspecified (04/30/25) Physical Therapy Treatment Note M2 PT-IP Current Condition Start: 04/30/25 15:51 Freq: NEEDED Status: Discharge Protocol: Document 04/30/25 15:30 AB (Rec: 04/30/25 16:04 AB [id number]) Physical Therapy Current Condition Current Condition Evaluation Date 04/30/25 Treatment Diagnosis CVA; difficulty in walking Onset Date 04/30/25 M3 PT-IP Subjective Start: 04/30/25 15:51 Freq: NEEDED Status: Discharge Protocol: Document 05/01/25 11:05 AB (Rec: 05/01/25 13:47 AB Desktop) Subjective Physical Therapy Visit Type Type Treatment Note Visit Start Time 11:05 Visit Stop Time 11:30 Number of CONTRACT DESIGNER Visits 0 M4 PT-IP Mobility and Gait Start: 04/30/25 15:51 Freq: NEEDED Status: Discharge Protocol: Document 05/01/25 11:05 AB (Rec: 05/01/25 13:47 AB Desktop) PT-Bed Mobility Assessment Supine to Sit Supine to Sit Standby Assistance PT-Transfer Assessment Sit to and From Stand Sit to and from Standby Assistance Stand Equipment Transfer Assistive None Device Orthotic/Prosthetic No Devices or Brace: Comments Mobility Comments pt in bed and agreed to do PT. stated that she did not sleep well and just wants to go home. supine to sit SBA. sit to stand SBA and ambulated in room SBA to CGA without AD. (+) LOB with increase L lateral trunk leaning. pt also impulsive. pt sat back on EOB. informed regarding mobility, balance and safety and need for an AD to assist. pt stated that she has balance problems even before the CVA and she should be ok and does not want to use an AD with pt indicating she does not need to use an AD just because she had a CVA. pt also stated that at home, she can hold on the things inside her house. educated pt on safety and that pt has balance issues before the CVA and PT would recommend an AD whether the pt has CVA or not. pt then agreeable to try a cane. educated pt on how to use SPC. pt ambulated in room ~ 30 ft + 20 ft using SPC SBA. presents with steadier gait and less lateral trunk leaning but will need further training. pt sat on EOB. pt stated that she will consider getting a hurrycane. informed pt regarding HHPT. pt hesitant at first but agreed. pt has a disabled son who she takes care of and prefers HHPT than outpt PT. informed manager rn case. Gait Assessment Gait Gait Assistance Standby Assistance,Contact Guard Assist Required: Distance (Feet) 30 Able to Maintain Yes Weight Bearing Status During Gait Assistive Devices Assistive Device None,Straight Cane Orthotic/Prosthetic No Devices or Brace: Gait Deviations General Gait Pattern Ataxic,Lateral Trunk Lean Factors Limiting Gait Function Factors Limiting Decreased Activity Tolerance,Decreased Strength,Poor Gait Function Balance,Poor Safety Awareness M5 PT-IP Objective Assessments Start: 04/30/25 15:51 Freq: NEEDED Status: Discharge Protocol: Document 04/30/25 15:30 AB (Rec: 04/30/25 16:04 AB [id number]) Orientation Orientation/Cognition Level of Alertness Alert Orientation Name,Place,Situation Language Function No Deficits Noted Ability Safety Awareness Decreased Safety Awareness Memory Description No Deficits Noted Gross Range of Motion Lower Extremity ROM Assessment Within Functional Limits Strength Lower Extremity Strength Assessment Within Functional Limits Sensation Assessment Sensation Gross Sensation Right LE Impaired Light Touch Impaired Proprioception ( Impaired Position) Sensation Numbness Description Muscle Tone Muscle Tone WNL Yes M6 PT-IP Treatment Start: 04/30/25 15:51 Freq: NEEDED Status: Discharge Protocol: Document 05/01/25 11:05 AB (Rec: 05/01/25 13:47 AB Desktop) Physical Therapy Treatment Education Education Provided Safety M7 PT-IP Assessment and Plan Start: 04/30/25 15:51 Freq: NEEDED Status: Discharge Protocol: Document 05/01/25 11:05 AB (Rec: 05/01/25 13:47 AB Desktop) PT Summary Assessment and Plan Potential Rehabilitation Fair Potential Summary Impairments Pain,ROM,Strength,Balance,Coordination,Sensation,Tone, Cognition,Bed Mobility,Transfers,Gait,Activity Tolerance Progress Towards Slow Progress - Other Goals Assessment Summary pt requiring SBA to CGA with ambulation without AD and continues to have unsteady gait with (+) LOB. Recommending use of an AD but pt refuses to use one and stated that she can hold on to things inside the house and she seldom goes out of the house. Assessed ambulation using SPC and pt presents with steadier gait but more training is needed. pt stated that she would consider getting a hurry cane and trial of SPC. pt will also need HHPT. pt plans to go home and will have one of her sons to assist her. Goals Transfer Goal Independent Gait Goal Independent Gait Distance 200 Days to Meet Goals 5 Frequency of Treatment Frequency Of Once a Day Treatment Treatment Plan Physical Therapy Bed Mobility Training,Transfer Training,Gait Training, Treatment Plan Therapeutic Exercise,Balance Retraining,Discharge Planning,Hot or Cold Pack,Neuromuscular Re-ed, Coordination Retraining Recommendations To Nursing Amount of Assist 1 Person Assist Needed Discharge Recommendations PT Discharge Home with Assistance,Home Health Recommendations Transportation Needs Private Vehicle at Discharge - PT assist 1
[2025-05-01] MEDS: ACETAMINOPHEN 325 MG TABLET 650 MG PO (11:41)
--- NOTE | 2025-05-01 11:52 | CM.DANOTE ---
Patient is a 79 yo female who was admitted OBS Status on 04/30/25 for Thalamic Stroke. Pt has MCR and [employer] for insurance and her PCP was Syeda Justin at [facility] but Syeda moved. EMR was reviewed. Per MD, pt with stroke symptoms and admitted for antiplatelet tx for thalamic stroke and medically stable to discharge home today with HH after further PT. Per PT, with with some impulsivity and unsteady gait but able to ambulate and attempt cane for mobility and mostly SBA to CGA and recommending home with HH and sons to assist. SW met bedside with pt and son and explained role and they confirm they live in [place] [facility] at home ([address] in [place] [facility]) and pt is mostly independent with ADLs at baseline and does not use DME for ambulation although confirms she has been somewhat unsteady with her gait the past year and somewhat resistant to DME. Pt's one son had ankle reconstructive surgery about 3 months ago and still in a walking boot but able to transport pt and provide assist as needed and pt's other adult son lives with them and is somewhat disabled. Pt denies any hx of HH or SNF but agrees to attempting HH RN/PT/OT to see if it would assist with increasing her balance and steadiness. SW provided HH Choice list and no HH preference. [facility] HH referral made based on Vendor Calendar and they confirm they can accept and also sent F2F and HH orders. Sig HH brochure provided to patient. Pt and son agreeable to discharge home today, pt states she is looking forward to sleeping in her bed and son will transport. Plan: Patient to d/c home today via son POV and Sig HH to follow after discharge. GIRMA Bowen Discharge Planning/Care Management CM Discharge Assessment Start: 04/30/25 11:58 Freq: Status: Active Protocol: Document 05/01/25 11:50 BF (Rec: 05/01/25 11:52 BF [id number]) Discharge Planning Assessment Assigned Discharge GIRMA Vidal [employer] Operator DPOA/Assigned son Designee Name Advance Directives? No Advance Directives No on File History Provided By Patient,Family Member,Medical Record Has Patient been No admitted in last 30 days? Prior Living House Arrangements Household Members children Comment Lives with two adult sons, one son is disabled Type of Drives own vehicle transporation used prior to admit Independent with ADL Yes 's Is patient alert and Yes oriented? Needs Assistance Home Chores / Shopping With Caregiver for Yes: disabled adult son Another Patient/Family Home with Home Health Preference Barriers to No Discharge Discharge Plan Home with Home Health Community Services Physical Therapy,Occupational Therapy,Home Health Nurse Transportation Son in room and confirms he can transport Arrangement Referrals Initiated Home Health If patient plan is Yes home with home health: Has signed face to face form been completed? Medicare Choice List Yes Provided Medicare choice list patient,family reviewed on electronic tablet with SNF/HH Preference Sig HH Whiteboard Updated Yes in Patient Room with name and ext. # of Oxidized Finish Plater Review Status In Process Please Provide Date 05/01/25 Initial DC Assessment Was Performed Next Review Type Continued Stay Review
--- NOTE | 2025-05-01 12:13 | PM.DS.1 ---
History of Present Illness History of Present Illness Chief complaint: per patient , Having a stroke Narrative: The patient was a very pleasant 79-year-old female with history of smoking as well as untreated hypertension for the last 1-1/2 years. She awoke this morning with numbness of the right face and right side of her body. She presented to the ED where a CTA revealed 79% left internal carotid stenosis and no other findings. Her CT brain was unremarkable. She was discussed with tele neurology who recommended antiplatelet therapy with a dual load and high dose aspirin for 21 days as well as Plavix. Patient was given initial antiplatelet therapy in the emergency department. She had no weakness, facial droop, or other symptoms. Ultimately, she was admitted for ongoing evaluation. An MRI was ordered. She denies history of TIA, or stroke. She had a mild headache and has been under a lot of stress with her recently. Discharge Providers Provider Date of admission: 04/30/25 11:56 Discharge Date: 05/01/25 Consults: 04/30/25 13:19 Consult to Discharge Planning Routine Comment: Consult to Occupational Therapy Evaluate & Treat Comment: Physician Instructions: Evaluate and treat Consult to Physical Therapy Evaluate & Treat Comment: Physician Instructions: Evaluate and Treat Consult to Speech Therapy Evaluate & Treat Comment: Physician Instructions: Evaluate and treat Discharge provider: Garrett Burns MD Summary Hospital Course Discharge Diagnosis: 1. Thalamic stroke, active. 2. Hypertensive urgency, active. 3. Anxiety, active. 4. Tobacco use, active. 5. Right internal carotid stenosis, 79%. Hospital Course: She awoke with right-sided body numbness. She presented to the hospital and was found on imaging to have a thalamic stroke. She would improvement of her symptoms over the next 24 hours and had no motor symptoms. MRI confirmed her stroke. She was hypertensive and has not been taking blood pressure medications for over 1 year. Blood pressure medications were started at a low dose with the goal of slowly improving her blood pressure over the next 1-2 weeks given her recent stroke. In addition, she was a smoker at half a pack a day and the vital importance of smoking cessation was discussed at length. She was evaluated by therapies and felt to be a candidate for home health therapy. This was arranged and she was felt to be stable for discharge home. Status at Discharge Cognitive/behavioral status at discharge: oriented Functional status at discharge: independent ambulation Overall status at discharge: patient is back to baseline Time Spent with Patient Time spent: Greater than 30 minutes Exam Vital Signs (past 8 hours): - 05/01/25 08:00 Temperature 97.8 F Pulse Rate 69 Respiratory Rate 19 Blood Pressure 182/53 H Pulse Oximetry 96 Oxygen Flow Rate 0 Oxygen Delivery Method Room Air Oxygen Flow Rate 0 Narrative Exam Narrative: NAD, alert and oriented, fluent speech, calm. Normocephalic skull, EOMI, anicteric sclera, symmetric pupils. Oropharynx unremarkable, no droop. Neck supple, midline trachea, no adenopathy. Lungs clear, normal rate and effort. Heart regular, no murmur gallop or rub. Abdomen is soft, non distended and non tender. Extremities are free of edema. Skin is free of rash or lesions. Joints are not swollen or deformed. Judgment appears to be normal. Neuro: Cranial nerves normal, no facial droop normal speech. Motor strength is 5/5 all extremities. She was decreased sensation to touch in the right face, arm, and leg. Objective ECG Impression: Impression: Normal sinus rhythm Possible Left atrial enlargement Minimal voltage criteria for LVH, may be normal variant ( [place] product ) Junctional ST depression, probably normal Imaging Multiple studies:: Radiologist's impression: CT brain: No acute intracranial pathology. CTA head and neck: No significant intracranial arterial abnormality is seen. 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 2 cm left thyroid nodule. Recommend dedicated outpatient thyroid ultrasound if not performed in the past. Any quantitative measurements of stenosis were performed using NASCET criteria. 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 Labs 04/30/25 10:22 04/30/25 10:22 Labs: Laboratory Results - last 24 hr 04/30/25 04/30/25 04/30/25 10:22 10:49 15:32 POC Whole Bld Glucose 101 H Hemoglobin A1c 5.6 Triglycerides 143 Cholesterol 222 H LDL Cholesterol, Calc 158 H HDL Cholesterol 35 L TSH Urine RBC 1-5/hpf Urine WBC 5-10/hpf H Ur Squamous Epith Cells 0-1 /hpf Urine Bacteria Many (>30) H Ur Culture Indicated? Specimen cultured Vol Urine Centrifuged 10ml (spun) 05/01/25 05:09 POC Whole Bld Glucose Hemoglobin A1c Triglycerides Cholesterol LDL Cholesterol, Calc HDL Cholesterol TSH 4.04 Urine RBC Urine WBC Ur Squamous Epith Cells Urine Bacteria Ur Culture Indicated? Vol Urine Centrifuged [facility] Social History household members: children Smoking Status: Current some day smoker alcohol intake: current Discharge Assessment & Plan Assessment and Plan Assessment: 1. Thalamic stroke, present on admission and improving. 2. Uncontrolled hypertension, improved. 3. 79% right internal carotid stenosis, not felt to correlate to her acute ischemic event. Discussed with Teleneurology, please see history and physical. 4. Tobacco use Plan of Treatment: She will be discharged on dual antiplatelet therapy, specifically aspirin 325 daily for 21 days and Plavix 75 daily for 21 days. This was the recommendation from tele neuro. At that point she can then deescalate to a baby aspirin daily. She will be started on high dose atorvastatin and this be continued indefinitely. She will benefit from referral to vascular surgery for ongoing evaluation of her right carotid and the vital importance of smoking cessation was discussed with her. Discharge Plan Discharge Plan Patient Disposition: Home Health Service Provider Discharge Comment: Stable for discharge home on medical therapy with home physical therapy. Discharge orders & Medications Prescriptions: New atorvastatin 20 mg Tablet 80 mg PO BEDTIME Qty: 30 2RF clopidogrel 75 mg Tablet 75 mg PO DAILY Qty: 20 0RF aspirin 325 mg Tablet,Delayed Release (Dr/Ec) 325 mg PO DAILY Qty: 30 0RF lisinopril 5 mg tablet 5 mg PO DAILY Qty: 30 2RF Medication counseling provided by Pharmacist: No Diet/Activity/Treatments Diet: Low-fat Visit Report/Discharge Packet Stand Alone Forms: Congestive Heart Failure, Patient Portal/API, Stroke Signs & Symptoms Quality VTE Deep Vein Thrombosis/Pulmonary Embolism Present on Admission: No
== END 2025-05-01 13:02 | disposition home health service (06) ==
LOC: ED 10:20 → AC 12:04
PROVIDERS: Admitting Provider Hospitalist; Emergency Provider Family Medicine; Referring Provider Family Medicine; Visit Provider Hospitalist
DX: I63.9 Cerebral infarction, unspecified (principal); I65.22 Occlusion and stenosis of left carotid artery; I16.0 Hypertensive urgency; I10 Essential (primary) hypertension; R29.701 NIHSS score 1; F41.9 Anxiety disorder, unspecified; E78.5 Hyperlipidemia, unspecified; F17.210 Nicotine dependence, cigarettes, uncomplicated
CPT/HCPCS: 36415; 70450; 70496; 70498; 70551; 71045; 80053; 80061; 80305; 81003; 81015; 82550; 82962; 83036; 84443; 84484; 85025; 85610; 85730; 87077; 87086; 87186; 92523; 93005; 93306; 97116; 97161; 99283; 99284; G0378; J1644; Q9967